=== PATIENT | female | born 1975 | race Hispanic/Latino ===

== ENCOUNTER 2016-11-13 08:50 | Emergency (ER) | payer OTHER ==
[2016-11-13 08:50] VITALS: BMI 24.1
[2016-11-13] MEDS ORDERED: Sodium Chloride 0.9% 1,000 ML IV ONE (09:24)
--- NOTE | 2016-11-13 09:29 | C.PDOC ---
History Of Present Illness 41 y/o female with history of vertigo presents to the ED with complaints of dizziness the last 2 weeks. Pt was seen and evaluated at [facility], felt better, however symptoms returned 2 days ago and are worse. Pt also reports spinning sensation with associated photophobia and nausea. Pt also reports feeling SOB since yesterday, initially only on exertion but now feels SOB at rest. Pt also reports feeling weak. Denies visual changes, chest pain, numbness or any other complaints. Pt states she had a headache but resolved with furocet. Time Seen by Provider: 11/13/16 09:10 Chief Complaint (Nursing): Dizziness/Lightheaded History Per: Patient History/Exam Limitations: no limitations Onset/Duration Of Symptoms: Days, Intermittent Episodes Current Symptoms Are (Timing): Worse Seizure Or Post-ictal Symptoms: None Possible Causative Factor(s): Vertigo Fall Associated With With Symptoms: No Severity: Mild Recent travel outside of the [place]: No - Symptoms Of CVA Recent Head Trauma: No Past Medical History Reviewed: Historical Data, Nursing Documentation, Vital Signs Vital Signs: Last Vital Signs Temp 97.9 F 11/13/16 12:43 Pulse 56 L 11/13/16 12:43 Resp 18 11/13/16 12:43 BP 120/72 11/13/16 12:43 Pulse Ox 100 11/13/16 18:59 - Medical History PMH: Anxiety, Hypothyroidism, Migraine Surgical History: Tonsillectomy - [facility] Procedures ARTIF RUPT MEMBRANES NEC (12/12/98) EPISIOTOMY (12/12/98) INJECT/INFUSE NEC (04/10/13) TONSILLECTOMY (08/26/02) Family History: States: Unknown Family Hx - Social History Hx Tobacco Use: No Hx Alcohol Use: Yes Hx Substance Use: No Review Of Systems Constitutional: Positive for: Weakness. Negative for: Fever Eyes: Negative for: Vision Change Cardiovascular: Negative for: Chest Pain Respiratory: Positive for: Shortness of Breath Neurological: Positive for: Dizziness. Negative for: Numbness, Headache Physical Exam - Physical Exam Appears: Non-toxic, No Acute Distress Skin: Warm, Dry, No Rash Head: Atraumatic, Normacephalic Eye(s): bilateral: PERRL, EOMI, Photophobia, Other (No nystagmus) Ear(s): Bilateral: Normal Nose: Normal Oral Mucosa: Moist Throat: Normal, No Erythema Neck: Normal, Normal ROM, Supple Chest: Symmetrical Cardiovascular: Rhythm Regular, No Murmur Respiratory: Normal Breath Sounds, No Rales, No Rhonchi, No Wheezing Gastrointestinal/Abdominal: Normal Exam, Soft, No Tenderness Back: Normal Inspection Extremity: Bilateral: Atraumatic, No Pedal Edema, Normal Color And Temperature, Normal ROM Neurological/Psych: Oriented x3, Normal Speech, Normal Cranial Nerves, No Cerebellar Signs, Normal Motor, Normal Sensation Gait: Steady ED Course And Treatment - Laboratory Results Result Diagrams: 11/13/16 09:47 11/13/16 09:47 Lab Interpretation: Abnormal ECG: Interpreted By Me, Viewed By Me (and Dr Greer) ECG Rhythm: Sinus Rhythm ECG Interpretation: No Changes From Prior (11/06/16) Interpretation Of ECG: normal sinus rhythm with sinus arrhythmia at 61 bpm, normal axis, no ischemic changes Rate From EC (BPM) O2 Sat by Pulse Oximetry: 100 (room air) Pulse Ox Interpretation: Normal - Radiology CXR: Viewed By Me, Read By Radiologist CXR Interpretation: Yes: No Acute Disease Medical Decision Making Medical Decision Making: Impression: 41 y.o female with complains of dizziness and SOB Prior records reviewed, patient was seen 11/07/[facility] at [facility] for similar symptoms of vertigo. Patient was treated with Reglan, Benadryl, and Toradol. Patient had labs and CT performed with no acute findings. Plan: * EKG * CXR * Labs * IV NS, Reglan * CTA Progress: Labs reviewed and D-dimer was elevated, need CTA contrast to rule out PE. CXR was normal, no acute disease Unremarkable CT pulmonary angiogram. No pulmonary embolus. Upon reevaluation, patient is resting comfortably, is tolerating PO, and no longer has headache. She is hemodynamicallt stable, no neurologic deficit, fever, or nuchal rigidity. Patient at this time denies any chest pain or SOB. I discussed all results and provide copy of all diagnostics. Patient was instructed to follow up with physician/clinic in 1-2 days. Disposition Counseled Patient/Family Regarding: Studies Performed, Diagnosis, Need For Followup, Rx Given - Disposition Referrals: Farideh Giron MD [Staff Provider] - Disposition: HOME/ ROUTINE Disposition Time: 12:49 Condition: IMPROVED Additional Instructions: Your labs and CT were normal Please follow up with your primary doctor in few days for further evaluation Prescriptions: Metoclopramide [Reglan] 1 tab PO TID PRN #25 tab PRN Reason: Nausea/Vomiting Instructions: Vertigo (ED) - POA Present On Arrival: None - Clinical Impression Clinical Impression: Dizziness, Dyspnea - PA / POT FLUXER / Resident Statement MD/DO has reviewed & agrees with the documentation as recorded. - Scribe Statement The provider has reviewed the documentation as recorded by the Scribevelio Mccartney All medical record entries made by the Laura were at my direction and personally dictated by me. I have reviewed the chart and agree that the record accurately reflects my personal performance of the history, physical exam, medical decision making, and the department course for this patient. I have also personally directed, reviewed, and agree with the discharge instructions and disposition.
[2016-11-13] MEDS ORDERED: Sodium Chloride 0.9% 1,000 ML ONE (09:49)
[2016-11-13 09:51] LABS: BASO # 0.1 K/uL (0.0-0.2); BASO % 1.4 % (0.0-2.0); EOS # 0.1 K/uL (0.0-0.7); EOS % 1.3 % (0.0-4.0); HEMATOCRIT 41.7 % (34.0-47.0); LYMPH # 1.8 K/uL (1.0-4.3); LYMPH % 33.3 % (20.0-40.0); MEAN CELL VOLUME 81.8 fL (81.0-99.0); MEAN CORPUSCULAR HEMOGLOBIN 25.8 pg (27.0-31.0); MEAN CORPUSCULAR HGB CONC 31.5 g/dL (33.0-37.0); MEAN PLATELET VOLUME 8.8 fL (7.2-11.7); MONO # 0.7 K/uL (0.0-0.8); MONO % 12.5 % (0.0-10.0); NRBC % 0.1 % (0.0-2.0); RED CELL DISTRIBUTION WIDTH 15.8 % (11.5-14.5); WHITE BLOOD COUNT 5.5 K/uL (4.8-10.8)
[2016-11-13 10:04] LABS: CHLORIDE 104 mmol/L (98-107); POTASSIUM 4.4 mmol/L (3.6-5.2); SODIUM 139 mmol/L (132-148)
[2016-11-13 10:06] LABS: BILIRUBIN,TOTAL 0.8 mg/dL (0.2-1.3); GFR AFRICAN-AMERICAN > 60
[2016-11-13 10:07] LABS: ALB/GLOB RATIO 1.9 (1.0-2.1); ALKALINE PHOSPHATASE 98 U/L (38-126); ALT/SGPT 17 U/L (9-52); AST/SGOT 20 U/L (14-36); BLOOD UREA NITROGEN 13 mg/dL (7-17); CALCIUM 9.8 mg/dl (8.6-10.4); CARBON DIOXIDE 21 mmol/L (22-30); GLUCOSE,RANDOM 89 mg/dL (65-105); TOTAL PROTEIN 8.2 g/dL (6.3-8.3)
[2016-11-13 10:11] LABS: INR 1.1
[2016-11-13 10:26] LABS: RBC URINE < 1 /hpf (0-3); URINE BACTERIA RARE (<OCC); URINE BILIRUBIN NEGATIVE (NEGATIVE); URINE BLOOD NEGATIVE (NEGATIVE); URINE COLOR Straw (YELLOW); URINE GLUCOSE (UA) NORMAL (Normal); URINE KETONE NEGATIVE (NEGATIVE); URINE LEUKOCYTE ESTERASE NEG Leu/uL (Negative); URINE PROTEIN NEGATIVE (NEGATIVE); URINE UROBILINOGEN NORMAL mg/dL (0.2-1.0); WBC URINE 2 /hpf (0-5)
[2016-11-13] MEDS ORDERED: Iodixanol 320 mg/ml 150 ml Bottle IV ONE (11:28)
--- NOTE | 2016-11-13 11:56 | RAD ---
PROCEDURE: CHEST RADIOGRAPH, 1 VIEW HISTORY: SOB COMPARISON: None available. FINDINGS: LUNGS: Clear. PLEURA: No pneumothorax or pleural fluid seen. CARDIOVASCULAR: Normal. OSSEOUS STRUCTURES: No significant abnormalities. VISUALIZED UPPER ABDOMEN: Normal. OTHER FINDINGS: None. IMPRESSION: No active disease.
[2016-11-13 12:08] VITALS: O2SAT 100
--- NOTE | 2016-11-13 12:35 | CT ---
PROCEDURE: CT Chest with contrast (Pulmonary Angiogram) HISTORY: sob, elevated Dimer COMPARISON: None available. TECHNIQUE: Axial computed tomography images were obtained of the chest in the pulmonary arterial phase of enhancement. Coronal and sagittal reformatted images were created and reviewed. Intravenous contrast dose: 100 cc of Omnipaque 300 Radiation dose: Total exam DLP = 262 mGy-cm. This CT exam was performed using one or more of the following dose reduction techniques: Automated exposure control, adjustment of the mA and/or kV according to patient size, and/or use of iterative reconstruction technique. FINDINGS: PULMONARY ARTERIES: Unremarkable. No pulmonary embolism. AORTA: No acute findings. No thoracic aortic aneurysm. LUNGS: Unremarkable. No nodule, mass or pulmonary consolidation. PLEURAL SPACES: Unremarkable. No effusion or pneuomothorax. HEART: Unremarkable. No cardiomegaly. No significant pericardial effusion. LYMPH NODES: No lymphadenopathy. BONES, CHEST WALL: Unremarkable. No fracture or destructive lesion OTHER FINDINGS: Unremarkable. IMPRESSION: Unremarkable CT pulmonary angiogram. No pulmonary embolus.
[2016-11-13 12:43] VITALS: BP 120/72; PULSE 56; RESP 18; TEMP 97.9
== END 2016-11-13 13:06 | disposition home or self-care (01) ==
LOC: C.ER 08:50
DX: R42 Dizziness and giddiness (principal); R06.00 Dyspnea, unspecified; R55 Syncope and collapse
CPT/HCPCS: 71010; 71275; 80053; 81001; 83880; 84484; 84703; 85025; 85378; 85610; 85730; 96360; 99285; J2765; J7040; Q9965

== ENCOUNTER 2017-07-04 05:35 | Day surgery (SDC) | payer OTHER ==
[2017-07-02 10:40] VITALS: BMI 22.4
[2017-07-04] MEDS ORDERED: cefOXitin IV 1 gm in Dextrose 0 GM/0 ML BAG IVPB ONE (07:23)
[2017-07-04] MEDS ORDERED: HYDROmorphone 0.5 mg/0.5 ml ISec IVP PRN ×2 (08:01→08:31)
--- NOTE | 2017-07-04 08:38 | PCM.SURG1 ---
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 ectocervix anteiro and posteiro portions removed with enodocerical portion. goo dhemostais, no complicaoitna Post-Operative Diagnosis: same as above Operation Performed: Loop electrosurgical excision proceduer, endocervical currttage Specimen/Specimens Removed: ectocervix, atntieor and posteiro portions, endocervix/ ecc Estimated Blood Loss: EBL {In ML}: 5 Blood Products Given: N/A Drains Used: No Drains Post-Op Condition: Good Date of Surgery/Procedure: 07/04/17 Time of Surgery/Procedure: 08:00
[2017-07-04] MEDS ORDERED: Lactated Ringer's 1,000 ML IV ONE (09:30)
[2017-07-04 10:20] VITALS: O2SAT 100
[2017-07-04 11:25] VITALS: BP 108/55; PULSE 59; RESP 18; TEMP 97.9
--- NOTE | 2017-07-05 00:47 | OP ---
PROCEDURE DATE: 07/04/2017 SURGEON: Genesis Figueroa MD SOFTWARE SUPPORT REPRESENTATIVE: None. TYPE OF ANESTHESIA: General LMA. PREOPERATIVE DIAGNOSIS: Cervical intraepithelial neoplasm. OPERATIVE FINDINGS: Multiparous, short cervix, ectocervix, anterior and posterior portions removed with endocervical portion, good hemostasis. No complication. Abnormal specimen biopsy at 1 o'clock on prior colposcopy in office. POSTOPERATIVE DIAGNOSIS: Cervical intraepithelial neoplasm. OPERATION PERFORMED: Loop electrosurgical excision procedure, endocervical curettage. SPECIMEN REMOVED: Ectocervix, anterior and posterior portion of endocervix with endocervical curettage. ESTIMATED BLOOD LOSS: 5 mL. BLOOD PRODUCTS: None. COMPLICATIONS: None. DESCRIPTION OF PROCEDURE: The patient was taken to the operating room where she was given general anesthesia. The patient had a history of an abnormal Pap smear, high grade CHRISTIE, which a colposcopy demonstrated GERI-3, with negative ECC. On cervical biopsy, the patient had no significant history. The patient is advised to undergo cone versus LEEP. All risks and benefits were discussed with the patient, not limited to, bleeding, infection, risk of labor, cervical insufficiency if future was to happen. All questions were answered. The patient was taken to the operating room where she was placed under general anesthesia without any difficulty. She was then prepped and draped in the usual sterile fashion and placed in the dorsal lithotomy position. A bimanual preoperative exam was performed with the above mentioned findings. A preoperative beta urine test was negative. At this time, a large weighted speculum was placed into the vagina. Due to the allergy of iodine, no Lugol solution was then applied. A large loop electrode was then used from the anterior top portion of the cervix with a separate posterior portion. This was excised and sent to Pathology. A small loop electrode was then used to obtain a top hat for excision of the endocervix and endocervical curettage was then sent to Pathology on [facility] for the specimen. The bed of the excised cervical tissue of the cervix was then excised using the roller ball. Hemostasis was noted. All instruments were removed from the vagina. At this point, the patient tolerated the procedure well. There were no complications. Prior to the procedure, the patient did have a straight cath with 50 mL of yellow urine. At the end of the procedure, all needle, sponge, and instrument counts were noted and correct x2. The patient tolerated the procedure well and was transferred to the recovery room in stable condition. Genesis Figueroa MD
== END 2017-07-04 10:59 | disposition home or self-care (01) ==
LOC: C.SDS 05:35
PROVIDERS: ATTEND Obstetrics & Gynecology
DX: D06.9 Carcinoma in situ of cervix, unspecified (principal)
CPT/HCPCS: 57522; 88305; J7120

== ENCOUNTER 2018-07-23 09:36 | Emergency (ER) | payer OTHER ==
[2018-07-23 09:40] VITALS: BMI 23.3
[2018-07-23 09:42] VITALS: BP 122/79; PULSE 84; RESP 18; TEMP 98.3; O2SAT 100
[2018-07-23] MEDS ORDERED: Benzoin Compound Tincture (60 ml) ONE (10:13)
--- NOTE | 2018-07-23 10:16 | C.PDOC ---
History Of Present Illness 43 y/o female, [employer] employee, presents to the ED for evaluation of hand lacerations sustained yesterday. Patient states she tripped and fell the hitting dorsal aspect of her right hand into a mirror, which shattered and cut her hand. She sustained multiple small lacerations to the dorsal aspect of fingers and a deeper laceration over her third knuckle. Patient denies any fever or chills. She complains of pain from the right hand radiating up to shoulder. Time Seen by Provider: 07/23/18 09:49 Chief Complaint (Nursing): Abnormal Skin Integrity History Per: Patient History/Exam Limitations: no limitations Onset/Duration Of Symptoms: Days (2) Current Symptoms Are (Timing): Still Present Location Of Injury: Right: Hand Quality Of Symptoms: Painful Past Medical History Reviewed: Historical Data, Nursing Documentation, Vital Signs Vital Signs: Last Vital Signs Temp 98.3 F 07/23/18 09:40 Pulse 84 07/23/18 09:40 Resp 18 07/23/18 09:40 BP 122/79 07/23/18 09:40 Pulse Ox 100 07/23/18 09:40 - Medical History PMH: Anxiety, Hypothyroidism, Migraine Denies: Chronic Kidney Disease Surgical History: Endoscopy, Tonsillectomy - [facility] Procedures ARTIF RUPT MEMBRANES NEC (12/12/98) EPISIOTOMY (12/12/98) INJECT/INFUSE NEC (04/10/13) TONSILLECTOMY (08/26/02) Family History: States: Unknown Family Hx - Social History Hx Tobacco Use: No Hx Alcohol Use: Yes Hx Substance Use: No Review Of Systems Except As Marked, All Systems Reviewed And Found Negative. Constitutional: Negative for: Fever, Chills Cardiovascular: Negative for: Chest Pain Respiratory: Negative for: Shortness of Breath Gastrointestinal: Negative for: Vomiting Musculoskeletal: Positive for: Hand Pain Skin: Positive for: Lesions (lacerations to right hand) Neurological: Negative for: Weakness, Numbness Physical Exam - Physical Exam Appears: Well, Non-toxic, No Acute Distress Skin: Warm, Dry Head: Atraumatic, Normacephalic Eye(s): bilateral: Normal Inspection Neck: Normal ROM Chest: Symmetrical Respiratory: No Accessory Muscle Use, Other (No respiratory distress) Extremity: Normal ROM, Capillary Refill (< 2 sec), Other (Multiple small lacerations to the right posterior digits 2, 3, 4, and 5; Over the index finger, there is a superficial laceration that is beginning to heal; Over third knuckle there is a deeper laceration with associated swelling and tenderness) Pulses: Left Radial: Normal, Right Radial: Normal Neurological/Psych: Oriented x3, Normal Motor, Normal Sensation Gait: Steady ED Course And Treatment O2 Sat by Pulse Oximetry: 100 (RA) Pulse Ox Interpretation: Normal Laceration - Laceration Repair right 3rd digit/knuckle Wound Length (In cm): 0.5 Description Of Wound: Irregular (Jagged) Wound Cleansed With: Betadine, Sterile Saline Wound Examination: Irrigated With Saline Wound Closure: Steri Strips Wound Complexity: Simple Medical Decision Making Medical Decision Making: Plan: - Right hand x-ray - Wound care Hand was soaked in betadine and sterile saline to cleanse wounds. Deeper laceration over the knuckle was closed using steri-strips. X-ray reviewed, shows no acute fracture or dislocation. Finger splint applied to hold steri-strips in place. Patient will be discharged home with antibiotic. Counseled patient regarding wound care and follow up instructions. Disposition Counseled Patient/Family Regarding: Diagnosis, Need For Followup, Rx Given - Disposition Disposition: HOME/ ROUTINE Disposition Time: 10:13 Condition: STABLE Prescriptions: Cephalexin [Keflex] 500 mg PO TID #40 capsule Instructions: Wound Care (DC) Forms: General Discharge Instructions, [facility] ([place]), Work Excuse - POA Present On Arrival: None - Clinical Impression Clinical Impression: Laceration of hand - Scribe Statement The provider has reviewed the documentation as recorded by the Laura Colin Provider Attestation: All medical record entries made by the Laura were at my direction and personally dictated by me. I have reviewed the chart and agree that the record accurately reflects my personal performance of the history, physical exam, medical decision making, and the department course for this patient. I have also personally directed, reviewed, and agree with the discharge instructions and disposition.
--- NOTE | 2018-07-23 11:02 | RAD ---
PROCEDURE: Right Hand Radiographs. HISTORY: fall COMPARISON: None. FINDINGS: BONES: Normal. No fracture. JOINTS: Normal. No osteoarthritic changes. SOFT TISSUES: Normal. OTHER FINDINGS: None. IMPRESSION: Normal right hand radiographs.
== END 2018-07-23 11:05 | disposition home or self-care (01) ==
LOC: C.ER 09:36
DX: S61.411A Laceration without foreign body of right hand, initial encounter (principal); W01.110A Fall on same level from slipping, tripping and stumbling with subsequent striking against sharp glass, initial encounter